=== PATIENT | female | born 1975 | race American Indian/Alaskan Native ===

== ENCOUNTER 2016-04-23 13:21 | Inpatient (IN) | payer MEDICAID ==
--- NOTE | 2016-04-23 14:40 | Emergency Department Report ---
Chief Complaint: High BP Stated Complaint: SHOOTING PAIN IN BACK/CHEST /ABD PAIN /HEAD PRESSU Time Seen by Provider: 04/23/16 14:26 - HPI History of Present Illness: 41-year-old female comes in for complaint of nausea and dizziness headache palpitations chest pressure just pain shooting through her chest to her upper back, pelvic pain mostly at night. Patient has a past medical history of hypertension she takes lisinopril 40 mg amlodipine pravastatin . - Exam Vital Signs: Vital Signs 04/23/16 13:29 Temperature 99.0 F Pulse Rate 79 Respiratory 22 Rate Blood Pressure 151/106 O2 Sat by Pulse 99 Oximetry Physical Exam: Is alert and oriented 3 no acute distress cardiovascular S1-S2 regular rate and rhythm respiratory clear to auscultation bilaterally abdomen soft nontender nondistended MSE screening note: Focused history and physical exam performed. Due to findings the following was ordered: CBC CMP urinalysis was ordered EKG ordered. Patient be evaluated in the main ER ED Disposition for MSE Condition: Stable
[2016-04-23 15:17] LABS: Basophils % (Auto) 1.2 % (0.0-1.8); Eosinophils % (Auto) 4.4 % (0.0-4.3); Hematocrit 42.3 % (30.3-42.9); Hemoglobin 13.7 gm/dl (10.1-14.3); Mean Corpuscular HGB Conc 32 % (30-34); Mean Corpuscular Volume 78 fl (79-97); Platelet Count 171 K/mm3 (140-440); Red Cell Distribution Width 16.5 % (13.2-15.2); White Blood Count 6.8 K/mm3 (4.5-11.0)
[2016-04-23 15:22] LABS: Mean Corpuscular Hemoglobin 25 pg (28-32)
[2016-04-23 15:35] LABS: BUN/Creatinine Ratio 12.85; Blood Urea Nitrogen 9 mg/dL (7-17); Calcium 8.9 mg/dL (8.4-10.2); Carbon Dioxide 22 mmol/L (22-30); Glucose 92 mg/dL (65-100); Potassium 4.4 mmol/L (3.6-5.0); Sodium 141 mmol/L (137-145)
[2016-04-23 15:37] LABS: Anion Gap 16 mmol/L
[2016-04-23] MEDS ORDERED: NITRO-BID 2% TP ONE (21:53)
[2016-04-23] MEDS ORDERED: MORPHINE IV ONE (21:53)
[2016-04-23] MEDS ORDERED: ZOFRAN IV ONE (21:53)
--- NOTE | 2016-04-23 22:04 | Emergency Department Report ---
HPI - General Chief Complaint: High BP Time Seen by Provider: 04/23/16 14:26 - HPI HPI: Room 1 Patient is a 41-year-old female presenting with a chief complaint of chest pain. Patient states for 1 week she has had intermittent substernal chest pain that is shooting in nature. Patient admits to shortness of breath with chest pain patient admits to nausea but denies vomiting. Patient also missed a diaphoresis with the chest pain. The patient currently gives her chest pain a score of 6/10. Patient also complains of a headache for over 1 week which ibuprofen does not help. The patient describes the headache as diffuse. Patient denies any preceding trauma. Patient states she believes she had an abnormal stress test in 2016 but has never had a cardiac catheterization Location: [see above] Duration: [see above] Quality: Pain, see above Severity: [see above] Modifying factors: [see above] Context: [see above] Mode of transportation: [not driving] ED Past Medical Hx - Past Medical History Hx Hypertension: Yes Hx Psychiatric Treatment: Yes (anxiety/depression) Additional medical history: hypercholesterolemia - Surgical History Hx Cholecystectomy: Yes Additional Surgical History: - Family History Family history: no significant - Social History Smoking Status: Current Every Day Smoker Substance Use Type: None (denies illicit drug use) - Medications Home Medications: Home Medications Medication Instructions Recorded Confirmed Last Taken Type Lisinopril [Zestril TAB] 40 mg PO QDAY 10/08/13 04/23/16 04/23/16 History 40 MG Pravastatin (Nf) [Pravachol] 40 mg PO QDAY 10/08/13 04/23/16 04/23/16 History 40 MG Amlodipine Besylate [Norvasc] 5 mg PO DAILY 03/04/15 04/23/16 04/23/16 History 5 MG Ibuprofen [Motrin] 800 mg PO Q8HR PRN #30 tablet 03/04/15 04/23/16 04/23/16 Rx 800 MG hydrOXYzine PAMOATE [Vistaril] 50 mg PO TID 04/23/16 04/23/16 04/23/16 History ED Review of Systems ROS: Stated complaint: SHOOTING PAIN IN BACK/CHEST /ABD PAIN /HEAD PRESSU Other details as noted in HPI Comment: All other systems reviewed and negative Constitutional: diaphoresis Eyes: denies: eye pain, eye discharge, vision change ENT: denies: ear pain, throat pain Respiratory: shortness of breath Cardiovascular: chest pain Endocrine: no symptoms reported Gastrointestinal: nausea. denies: vomiting Genitourinary: denies: urgency, dysuria, discharge Musculoskeletal: denies: back pain, joint swelling, arthralgia Skin: denies: rash, lesions Neurological: headache Psychiatric: denies: anxiety, depression Hematological/Lymphatic: denies: easy bleeding, easy bruising Physical Exam - Physical Exam Vital Signs: Vital Signs 04/23/16 04/23/16 04/23/16 13:29 18:45 18:56 Temperature 99.0 F 98.0 F Pulse Rate 79 70 Respiratory 22 18 16 Rate Blood Pressure 151/106 Blood Pressure 127/74 [Right] O2 Sat by Pulse 99 100 Oximetry Physical Exam: GENERAL: The patient is well-developed well-nourished female lying on stretcher not appearing to be in acute distress. [] HEENT: Normocephalic. Atraumatic. Extraocular motions are intact. Patient has moist mucous membranes. No Nystagmus noted NECK: Supple. Trachea midline CHEST/LUNGS: Clear to auscultation. There is no respiratory distress noted. HEART/CARDIOVASCULAR: Regular. There is no tachycardia. There is no gallop rub or murmur. ABDOMEN: Abdomen is soft, nontender. Patient has normal bowel sounds. There is no abdominal distention. SKIN: There is no rash. There is no edema. There is no diaphoresis. NEURO: The patient is awake, alert, and oriented. The patient is cooperative. The patient has no focal neurologic deficits. The patient has normal speech. 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 ED Course Vital Signs 04/23/16 04/23/16 04/23/16 13:29 18:45 18:56 Temperature 99.0 F 98.0 F Pulse Rate 79 70 Respiratory 22 18 16 Rate Blood Pressure 151/106 Blood Pressure 127/74 [Right] O2 Sat by Pulse 99 100 Oximetry ED Medical Decision Making - Lab Data Result diagrams: 04/23/16 14:50 04/23/16 14:50 Laboratory Tests 04/23/16 04/23/16 14:50 14:50 WBC 6.8 RBC 5.40 H Hgb 13.7 Hct 42.3 MCV 78 L MCH 25 L MCHC 32 RDW 16.5 H Plt Count 171 Lymph % (Auto) 32.8 [place] % (Auto) 8.1 H Eos % (Auto) 4.4 H Baso % (Auto) 1.2 Lymph # 2.2 [place] # 0.6 Eos # 0.3 Baso # 0.1 Seg Neutrophils % 53.5 Seg Neutrophils # 3.6 Sodium 141 Potassium 4.4 Chloride 107.0 Carbon Dioxide 22 Anion Gap 16 BUN 9 Creatinine 0.7 Estimated GFR > 60 BUN/Creatinine Ratio 12.85 Glucose 92 Calcium 8.9 - EKG Data -: EKG Interpreted by Me EKG shows normal: sinus rhythm Rate: normal - EKG Data When compared to previous EKG there are: changes noted Interpretation: nonspecific ST-T wave severino (new T-wave inversion in lead V2 when compared to previous EKG dated 12/21/2015) - Radiology Data Radiology results: report reviewed (CT head), image reviewed (CT head, chest x- ray) interpreted by me: Chest x-ray-no focal infiltrates, no pneumothorax CT head (read by radiologist)-no acute intracranial abnormalities - Differential Diagnosis ACS, pericarditis, anxiety, ICH, headache Critical care attestation.: If time is entered above; I have spent that time in minutes in the direct care of this critically ill patient, excluding procedure time. ED Disposition Clinical Impression: Chest pain, Headache Disposition: OP ADMITTED IP TO THIS HOSP Is pt being admited?: Yes Does the pt Need Aspirin: Yes Condition: Fair Instructions: Chest Pain (ED) Referrals: PRIMARY CARE, [Primary Care Provider] - 3-5 Days Time of Disposition: 23:17 (hospitalist paged)
[2016-04-23 22:21] LABS: Creatine Kinase MB 1.1 ng/mL (0.0-4.0)
[2016-04-23 22:22] LABS: Creatine Kinase 123 units/L (30-135)
--- NOTE | 2016-04-23 22:53 | Cat Scan Report ---
FINAL REPORT PROCEDURE: CT HEAD/BRAIN WO CON TECHNIQUE: Computerized tomography of the head was performed without contrast material. HISTORY: headache COMPARISON: No prior studies are available for comparison. FINDINGS: Skull and scalp: Normal. Paranasal sinuses: Mucous retention cyst left frontal sinus. Expanded lateral chambers of the sphenoid sinuses right greater than left. Expansive mastoid air cell sinuses.. Ventricles and subarachnoid spaces: Normal. Cerebrum: No evidence of hemorrhage, acute infarction or mass . Cerebellum and brainstem: No evidence of hemorrhage, acute infarction or mass. Vasculature: Normal. Comments: None. IMPRESSION: No acute intracranial pathology seen at this time
[2016-04-23] MEDS ORDERED: ASPIRIN PO ONE (23:18)
--- NOTE | 2016-04-24 00:25 | History and Physical Report ---
History of Present Illness Date of examination: 04/24/16 History of present illness: 41-year-old man with a history of hypertension, hyperlipidemia, anxiety, depression comes emergency room with complaints of chest pain located in the epigastric area. She describes it as a shooting pain, intermittent in nature lasting for less than 2 minutes, radiating to the back, intensity 4/10, she cannot identify exacerbating or relieving factors. No relief with nitroglycerin paste. Admits to nausea, shortness of breath, no palpitation or diaphoresis. She had a stress test last year which was negative Patient denies cough, abdominal pain, hematochezia, dysuria, frequency, focal weakness, dysarthria, fever chills, polydipsia polyuria, hot or cold intolerance , easy bruisability, or rash or bleeding from mucosal membrane, rhinorrhea, epistaxis, earache, tinnitus, blurry vision, eye discharge, anxiety, depression. Other review of systems negative PAST SURGICAL HISTORY: , cholecystectomy SOCIAL HISTORY: Denies alcohol, tobacco, drugs FAMILY HISTORY: Hypertension Medications and Allergies Allergies Allergy/AdvReac Type Severity Reaction Status Date / Time hydromorphone HCl Allergy Unknown Verified 04/23/16 21:52 [From Dilaudid] Home Medications Medication Instructions Recorded Confirmed Last Taken Type Lisinopril [Zestril TAB] 40 mg PO QDAY 10/08/13 04/23/16 04/23/16 History 40 MG Pravastatin (Nf) [Pravachol] 40 mg PO QDAY 10/08/13 04/23/16 04/23/16 History 40 MG Amlodipine Besylate [Norvasc] 5 mg PO DAILY 03/04/15 04/23/16 04/23/16 History 5 MG Ibuprofen [Motrin] 800 mg PO Q8HR PRN #30 tablet 03/04/15 04/23/16 04/23/16 Rx 800 MG hydrOXYzine PAMOATE [Vistaril] 50 mg PO TID 04/23/16 04/23/16 04/23/16 History Active Meds: Active Medications Amlodipine Besylate (Norvasc) 5 mg PO DAILY FRANCISCO Lisinopril (Zestril) 40 mg PO QDAY FRANCISCO Simvastatin (Zocor) 20 mg PO QHS FRANCISCO Exam - Physical Exam Narrative exam: Gen. appearance: Patient lying in bed, no apparent distress HEENT: Normocephalic, atraumatic, pupils equally round and reactive to light, extraocular movement intact, and no sclericterus,. No JVD or thyromegaly or nodule,neck supple, no carotid bruit ,mucous membranes moist, no exudate or erythema Heart: S1, S2, regular rate and rhythm Lungs: Clear to auscultation bilaterally, breathing comfortable Abdomen: Positive bowel sounds, nontender, nondistended, no organomegaly Extremity: No edema, cyanosis, clubbing Skin: No rash, nodules, warm, dry Neuro: Oriented 3, cranial nerves II-12 intact, speech is fluent, motor and sensory intact - Constitutional Vitals: Temp Pulse Resp BP Pulse Ox 98.0 F 50 L 19 139/88 100 04/23/16 18:56 04/23/16 23:00 04/23/16 23:00 04/23/16 23:00 04/23/16 18:45 Results - Labs CBC & Chem 7: 04/23/16 14:50 04/23/16 14:50 Labs: Abnormal lab results 04/23/16 Range/Units 14:50 RBC 5.40 H (3.65-5.03) M/mm3 MCV 78 L (79-97) fl MCH 25 L (28-32) pg RDW 16.5 H (13.2-15.2) % [place] % (Auto) 8.1 H (0.0-7.3) % Eos % (Auto) 4.4 H (0.0-4.3) % - Imaging and Cardiology EKG: image reviewed Chest x-ray: image reviewed CT Scan - head: report reviewed Assessment and Plan Hypertensive urgency Atypical Chest pain, rule out [place] Hyperlipidemia Depression Anxiety Admits medicine Check cardiac enzymes, lipid profile, consult cardiology Continue outpatient medications, start DVT prophylaxis Start Aspirin, IV morphine
--- NOTE | 2016-04-24 01:20 | Admit Criteria Form ---
Admission Criteria Documentation: CARDIOLOGY GRG Clinical Indications for Admission to Inpatient Care ( Place 'X' for any and all applicable criteria): Hospital admission is needed for appropriate care of the patient because of ANY ONE of the following (1): [ ] I. Hemodynamic instability as indicated by ALL of the following (1)(2)(3) (4)(5) [ ]a) Vital signs or other findings not as expected for chronic patient condition or baseline [ ]b) Instability indicated by ANY ONE of the following: [ ]i) Hypotension [ ]ii) Symptomatic Tachycardia unresponsive to treatment ( e.g., analgesia, fluids, sedation as indicated) [ ]iii) Inadequate perfusion indicated by ANY ONE of the following: [ ] 1) Lactic acidosis (> 2 mmol/L) [ ] 2) New abnormal capillary refill (> 3 seconds) [ ] 3) Reduced urine output [ ] 4) New altered mental status [ ]iv) Orthostatic vital sign changes unresponsive to treatment (e.g., fluids) [ ]v) IV inotropic or vasopressor medication required to maintain adequate blood pressure or perfusion [ ] II. Severe heart failure as indicated by ANY ONE of the following(17)(18) [ ]a) Respiratory distress [ ]b) Hypotension [ ]c) Anasarca (refractory to outpatient therapy) [ ]d) Cardiac arrhythmias of immediate concern [ ]e) Myocardial ischemia [ ] III. Cardiac arrhythmias or findings of immediate concern indicated by ANY ONE of the following (19)(20): [ ] a) Heart rhythms that are inherently dangerous or unstable indicated by ANY ONE of the following (21)(22)(23): [ ] i) Resuscitated ventricular fibrillation or cardiac arrest [ ] ii) Ventricular escape rhythm [ ] iii) Sustained ventricular tachycardia (30 seconds or more of ventricular rhythm at greater than 100 beats per minute) [ ] iv) Nonsustained ventricular tachycardia and ANY ONE of the following: [ ] 1) Suspected cardiac ischemia as cause or consequence of ventricular tachycardia [ ] 2) In setting of acute myocarditis [ ] b) Unstable cardiac conduction defects indicated by ANY ONE of the following(23)(24)(25) [ ] i) Type II second-degree atrioventricular block [ ]ii) Third-degree atrioventricular block [ ]iii) New-onset left bundle branch block with suspected myocardial ischemia [ ]c) Any heart rhythm and ANY ONE of the following (21)(22)(26)(27) (28) [ ] i) Continuous long-term ECG monitoring needed (e.g., initiation of drug requiring monitoring for more than 24 hours) [ ] ii) Patient has automatic implanted cardioverter defibrillator that is repeatedly firing, malfunctioning, or in need of immediate adjustment of settings beyond the scope of ambulatory or observation care [ ]d) Heart rhythms of concern due to ANY ONE of the following: [ ] i) Hypotension [ ] ii) Respiratory distress [ ] iii) Association with other significant symptoms (e.g., bradycardia with syncope or ongoing dizziness, supraventricular tachycardia with chest pain (14)(15)(17) [ ] IV. Monitoring for cardiac contusion beyond the scope of observation care needed [A](30)(31)(32) [ ] V. Surgical or device complication (e.g., valve replacement complication , pacemaker dysfunction) (35)(41)(44)(45)(46) [ ] . Inpatient palliative care needed. [B](49) Also use Inpatient Palliative Care Criteria [ ] VII. Nonbacterial thrombotic (marantic) endocarditis (36)(43)(47)(48) [ X] VIII. Cardiology condition, symptom, or finding for which emergency and observation care has failed or are not considered appropriate. [ ] IX. Acute valvular disease requiring inpatient as indicated by ANY ONE of the following (41) [ ]a) Acute valvular regurgitation (42) [ ]b) Noninfectious valvulitis (43) [ ]c) Obstructive valve thrombosis [ ]d) Paravalvular leak [ ]e) Other significant valvular disorder remaining after emergency or observation level of care (as appropriate) [ ]X. Pericardial disease requiring inpatient treatment as indicated by ANY ONE of the following (33)(34)(35)(36)(37) [ ]a) Suspected tamponade (38)(39)(40) [ ]b) Hemopericardium [ ]c) Other significant pericardial disorder remaining after emergency or observation level of care (as appropriate) [ ] XI. Cardiac ischemia beyond scope of emergency and observation care. [ ] XII. Hypertension requiring inpatient treatment as indicated by ANY ONE of the following (6)(7)(8) [ ]a) SBP greater than 220 mm Hg or DBP greater than 120 mmHg despite treatment [ ]b) SBP greater than 140 mm Hg or DBP greater than 100 mm Hg with evidence of acute end organ damage as indicated by ANY ONE of the following [ ] i) Altered mental status [ ] ii) Acute renal failure as indicated by new onset of ANY ONE of the following (9)(10)(11)(12)(13) [ ]1) 3-fold rise in serum creatinine from baseline [ ]2) Serum creatinine greater than 4 mg/dL ( 354 micromoles/L) with acute rise greater than 0.5 mg/dL (44.2 micromoles/L) [ ]3) Reduction of more than 75% in estimated glomerular filtration rate from baseline [ ]4) Estimated glomerular filtration rate less than 35 mL/min/1.73m2 (0.59 mL/sec/1.73m2) in child up to 18 years of age [ ]5) Cessation of urine output indicated by ALL of the following [ ]A. Adequate volume status [ ]B. Inadequate urine output as indicated by ANY ONE of the following [ ]a. Urine output less than 0.3 mL/kg/hr for 24 hours [ ]b. Anuria (urine output less than 0.1 mL/kg/hr) for 12 hours [ ] iii) Aortic dissection [ ] iv) Myocardial Ischemia [ ] v) Left ventricular heart failure [ ]vi) Retinal Hemorrhage [ ]vii) Other significant finding [ ]c) Hypertension in child requiring inpatient treatment as indicated by ALL of the following(14)(15)(16) [ ] i) Outpatient treatment not effective, not available, or not appropriate [ ]ii) SBP or DBP greater than 95th percentile for age [ ]iii) Evidence of acute end organ damage as indicated by ANY ONE of the following [ ]1) Altered mental status [ ]2) Acute renal failure as indicated by new onset of ANY ONE of the following(9)(10)(11)(12)(13) [ ]A. 3-fold rise in serum creatinine from baseline [ ]B. Serum creatinine greater than 4 mg/dL (354 micromoles/L) with acute rise greater than 0.5 mg/dL (44.2 micromoles/L) [ ]C. Reduction of more than 75% in estimated glomerular filtration rate from baseline [ ]D. Estimated glomerular filtration rate less than 35 mL/min/1.73m2 (0.59 mL/sec/1.73m2) in child up to 18 years of age [ ]E. Cessation of urine output indicated by ALL of the following [ ]a. Adequate volume status [ ]b. Inadequate urine output as indicated by ANY ONE of the following [ ]i) Urine output less than 0.3 mL/kg/hr for 24 hours [ ]ii) Anuria ( urine output less than 0.1 mL/kg/hr) for 12 hours [ ]3) Severe headache [ ]4) Visual disturbance [ ]5) Retinal hemorrhage [ ]6) Other significant finding [ ]XIII. Complications of transplanted heart indicated by ANY ONE of the following(61): [ ]a) Acute graft rejection requiring inpatient management (eg, intravenous immunosuppression)(62)(63) [ ]b) Acute graft heart failure indicated by ANY ONE of the following(64): [ ]i) Hemodynamic instability [ ]ii) Cardiac arrhythmias of immediate concern [ ]iii) Pulmonary edema that is very severe (eg, mechanical ventilation needed, imminent or likely, need for 100% oxygen to keep oxygen saturation above 90%) [ ]iv) Pulmonary edema that is persistent as indicated by ALL of the following: [ ]1) New need for oxygen therapy to keep oxygen saturation above 90% (or increased FiO2 need from baseline) [ ]2) Has not improved sufficiently with emergency department or observation care IV diuretics or other heart failure treatments[E] [ ]v) Altered mental status that is severe or persistent [ ]vi) Increased creatinine (new on laboratory test) with reduction of more than 50% in estimated glomerular filtration rate from baseline [ ]vii) Progressively (ongoing) rising creatinine (known from past laboratory test) with reduction of more than 25% in estimated glomerular filtration rate from baseline [ ]viii) Acute renal failure [ ]ix) Acute peripheral ischemia (eg, examination shows pulseless, cool, mottled, or cyanotic extremity) [ ]x) Pulmonary artery catheter monitoring needed [ ]xi) Other sign or symptom of heart failure requiring inpatient treatment (ie, too severe or not responsive to outpatient and observation care treatment) [ ]c) Infection requiring inpatient management (eg, Hemodynamic instability, need for intravenous antimicrobial treatment)(66)(67)(68)(69)(70) [ ]d) Cardiac allograft vasculopathy requiring inpatient management ( eg evidence of cardiac ischemia)(71) [ ]e) Other complication of transplanted heart (eg, stroke, severe pulmonary hypertension, severe valvular dysfunction) requiring inpatient management(72) The original [facility] content created by [employer] has been revised. The portions of the content which have been revised are identified through the use of italic text or in bold, and [facility] has neither reviewed nor approved the modified material. All other unmodified content is copyright [facility] [employer]. Please see references footnoted in the original [facility] [employer] edition 2016 Admission Criteria Met: Yes
[2016-04-24] MEDS ORDERED: DULCOLAX PR PRN (04:48)
[2016-04-24] MEDS ORDERED: TYLENOL PO PRN (04:48)
[2016-04-24] MEDS ORDERED: MORPHINE IV PRN (04:48)
[2016-04-24] MEDS ORDERED: ZOFRAN IV PRN (04:48)
[2016-04-24] MEDS ORDERED: SODIUM CHLORIDE FLUSH SYRINGE 10 ML IV PRN (04:48)
[2016-04-24] MEDS ORDERED: MILK OF MAGNESIA PO PRN (04:48)
[2016-04-24 06:04] LABS: Creatine Kinase MB 1.1 ng/mL (0.0-4.0)
--- NOTE | 2016-04-24 08:56 | XRay Report ---
PORTABLE CHEST: An AP portable view of the chest demonstrates a normal cardiac contour considering the limits of this technique. The lungs are clear with no evidence of infiltrate, fluid or failure. IMPRESSION: Normal portable chest.
[2016-04-24] MEDS ORDERED: NORVASC PO SCH (10:00)
[2016-04-24] MEDS ORDERED: LOVENOX SUB-Q SCH (10:00)
[2016-04-24] MEDS ORDERED: ZESTRIL PO SCH (10:00)
--- NOTE | 2016-04-24 10:00 | Consultation ---
Addendum entered and electronically signed by VERONIQUE VARGAS MD 11:57: Atypical chest pain Schedule for echo and lexiscan Original Note: History of Present Illness Consult date: 04/24/16 Consult reason: chest pain History of present illness: This is a 41yr old woman who presented to this hospital with complaints of chest pain. Patient reports chest pain, described as chest pressure, has been intermittent for 1 week. Associated shortness of breath. No acute ischemic changes on her presenting ECG. Cycled cardiac isoenymes are normal. Cardiology consultation requested for further recommendations. Patient reports a history of hypertension, anxiety, hyperlipidemia and tobacco abuse. 2 years ago she had normal myocardial perfusion persantine thallium and a normal LV systolic function, ejection fraction 70% by echocardiogram at [facility]. Medications and Allergies Allergies Allergy/AdvReac Type Severity Reaction Status Date / Time hydromorphone HCl Allergy Unknown Verified 04/23/16 21:52 [From Dilaudid] Home Medications Medication Instructions Recorded Confirmed Last Taken Type Lisinopril [Zestril TAB] 40 mg PO QDAY 10/08/13 04/23/16 04/23/16 History 40 MG Pravastatin (Nf) [Pravachol] 40 mg PO QDAY 10/08/13 04/23/16 04/23/16 History 40 MG Amlodipine Besylate [Norvasc] 5 mg PO DAILY 03/04/15 04/23/16 04/23/16 History 5 MG Ibuprofen [Motrin] 800 mg PO Q8HR PRN #30 tablet 03/04/15 04/23/16 04/23/16 Rx 800 MG hydrOXYzine PAMOATE [Vistaril] 50 mg PO TID 04/23/16 04/23/16 04/23/16 History Active Meds: Active Medications Acetaminophen (Tylenol) 650 mg PO Q4H PRN PRN Reason: Pain MILD(1-3)/Fever >100.5/MORE Amlodipine Besylate (Norvasc) 5 mg PO DAILY [facility] Aspirin (Baby Aspirin) 81 mg PO QDAY FRANCISCO Bisacodyl (Dulcolax) [address] QDAY PRN PRN Reason: Constipation unrelieved by MOM Enoxaparin Sodium (Lovenox) 40 mg SUB-Q QDAY FRANCISCO Lisinopril (Zestril) 40 mg PO QDAY FRANCISCO Magnesium Hydroxide (Milk Of Magnesia) 30 ml PO Q4H PRN PRN Reason: Constipation Morphine Sulfate (Morphine) 2 mg IV Q4H PRN PRN Reason: Pain, Moderate (4-6) Ondansetron HCl (Zofran) 4 mg IV Q8H PRN PRN Reason: N/V unrelieved by Reglan Simvastatin (Zocor) 20 mg PO QHS FRANCISCO Sodium Chloride (Sodium Chloride Flush Syringe 10 Ml) 10 ml IV PRN PRN PRN Reason: LINE FLUSH Physical Examination Vital Signs Temp Pulse Resp BP Pulse Ox 99.0 F 79 22 151/106 99 04/23/16 13:29 04/23/16 13:29 04/23/16 13:29 04/23/16 13:29 04/23/16 13:29 General appearance: no acute distress HEENT: Positive: PERRL Neck: Positive: trachea midline Cardiac: Positive: Reg Rate and Rhythm Lungs: Positive: Decreased Breath Sounds Neuro: Positive: Grossly Intact Results 04/23/16 14:50 04/23/16 14:50 Cardiac Enzymes 04/24/16 Range/Units 05:09 CK-MB (CK-2) 1.1 (0.0-4.0) ng/mL Lipids 04/24/16 Range/Units 05:09 Triglycerides 129 (2-149) mg/dL Cholesterol 200 H (50-199) mg/dL HDL Cholesterol 45 (40-59) mg/dL Cholesterol/HDL Ratio 4.44 % EKG interpretations - Telemetry EKG Rhythm: Sinus Rhythm Assessment and Plan Chest pain, atypical normal cycled Saray and benign ECG normal MPI 06/2014 normal LVEF by echo 06/2014 Hypertension Hyperlipidemia Tobacco abuse Recommend: Echocardiogram for LVEF assessment. Predischarge persantine thallium for further cardiac evaluation.
[2016-04-24] MEDS: ATIVAN IV ONE ×2 (10:52→17:53)
[2016-04-24 11:32] LABS: Creatine Kinase MB 1.2 ng/mL (0.0-4.0)
--- NOTE | 2016-04-24 11:52 | Progress Note ---
Assessment and Plan 1. Hypertensive urgency: Continue with antihypertensive meds. 2. Atypical chest pain: Cardiac enzymes were normal, continue with aspirin 325 mg daily, IV morphine. Cardiology following. 3. Hyperlipidemia: Continue with statin. 4. Depression: Commence Sertraline. 5. Anxiety disorder: Commence artivan prn . DVT prophylaxis: Continue with Lovenox 40 mg subcutaneous daily. Subjective Date of service: 04/24/16 Interval history: Chest pain improving. Objective - Constitutional Vitals: Vital Signs - 12hr 04/24/16 04/24/16 04/24/16 01:00 01:49 02:00 Temperature Pulse Rate 49 L 48 L 55 L Pulse Rate [ Left] Pulse Rate [ Right Radial] Respiratory 15 16 14 Rate Blood Pressure 145/90 145/90 130/84 Blood Pressure [Left Arm] Blood Pressure [Right Arm] O2 Sat by Pulse Oximetry 04/24/16 04/24/16 04/24/16 03:00 03:52 04:38 Temperature 98.2 F Pulse Rate 48 L 59 L Pulse Rate [ 50 L Left] Pulse Rate [ Right Radial] Respiratory 12 20 Rate Blood Pressure 127/78 Blood Pressure 126/75 [Left Arm] Blood Pressure [Right Arm] O2 Sat by Pulse 95 Oximetry 04/24/16 04/24/16 04/24/16 07:17 10:51 11:18 Temperature 98.0 F Pulse Rate Pulse Rate [ Left] Pulse Rate [ 53 L 51 L Right Radial] Respiratory 18 18 Rate Blood Pressure 139/74 Blood Pressure [Left Arm] Blood Pressure 120/76 144/89 [Right Arm] O2 Sat by Pulse 100 99 Oximetry General appearance: Present: no acute distress, well-nourished - EENT Eyes: PERRL, EOM intact ENT: hearing intact, clear oral mucosa Ears: bilateral: normal - Neck Neck: supple, normal ROM - Respiratory Respiratory effort: normal Respiratory: bilateral: CTA - Breasts Breasts: normal - Cardiovascular Rhythm: regular Heart Sounds: Present: S1 & S2. Absent: gallop, rub Extremities: pulses intact, No edema, normal color, Full ROM - Gastrointestinal General gastrointestinal: Present: soft, non-tender, non-distended, normal bowel sounds - Genitourinary Female genitourinary: normal - Integumentary Integumentary: clear, warm, dry - Musculoskeletal Musculoskeletal: 1, strength equal bilaterally - Neurologic Neurologic: moves all extremities - Psychiatric Psychiatric: memory intact, appropriate mood/affect, intact judgment & insight - Labs CBC & Chem 7: 04/23/16 14:50 04/23/16 14:50 Labs: Abnormal lab results 04/24/16 Range/Units 05:09 Cholesterol 200 H (50-199) mg/dL
[2016-04-24 15:58] VITALS: BP 134/94
--- NOTE | 2016-04-24 17:19 | Echocardiography Report ---
Transthoracic Echocardiogram Indication: CHEST PAIN, HTN BP: 144/89 HR: 54 Conclusions *The left ventricular chamber size is normal. *Global left ventricular systolic function is normal. *The estimated ejection fraction is 55-60%. Findings Procedure Info: The study quality is fair. The study is technically limited due to patient body habitus. Left Ventricle: The left ventricular chamber size is normal. Global left ventricular systolic function is normal. The estimated ejection fraction is 55-60%. Left Atrium: The left atrial chamber size is normal. Right Ventricle: The right ventricle is not well visualized. Right Atrium: The right atrium is not well visualized. The right atrial cavity size is normal. Aortic Valve: The aortic valve is trileaflet. There is no evidence of aortic regurgitation. There is no evidence of aortic stenosis. Mitral Valve: The mitral valve leaflets appear normal. There is mild mitral regurgitation. There is no evidence of mitral stenosis. Tricuspid Valve: The tricuspid valve is not well visualized. There is trace tricuspid regurgitation. No pulmonary hypertension is noted. There is no tricuspid stenosis. Pulmonic Valve: The pulmonic valve is not well visualized. There is mild pulmonic regurgitation. There is no pulmonic stenosis. Pericardium: There is no pericardial effusion. No pleural effusion is present. Aorta: There is no dilatation of the aortic root. Pulmonary Artery: The main pulmonary artery is not well visualized. Venous: The inferior vena cava appears normal in size. Measurements Chambers MM Name Value Normal Range IVSd (MM) 0.91 cm (0.6 - 1.1) LVPWd (MM) 1 cm (0.6 - 1.1) IVS:LVPW ratio 0.91 ratio - LVIDd (MM) 4.51 cm (3.7 - 5.6) LVIDs (MM) 2.3 cm (2 - 2.8) LV FS (Teichholz) (MM) 49 % - LV FS (cube) (MM) 49 % - EF Teichholz (MM) 80.5 % - Ao root diameter (MM) 2.4 cm (2 - 3.7) LA dimension (AP) MM 3.5 cm (1.9 - 4) LA:Ao ratio (MM) 1.46 ratio - AV cusp separation (MM) 2 cm (1.5 - 2.6) Chambers 2D Name Value Normal Range IVSd (2D) 0.9 cm (0.6 - 1.1) LVPWd 1 cm - LVPWd (2D) 0.97 cm (0.6 - 1.1) IVS:LVPW ratio (2D) 0.94 ratio - LVIDd 4.02 cm - LVIDs 2.3 cm - LVIDd (2D) 4.02 cm (3.7 - 5.6) LVIDs (2D) 2.31 cm (2 - 3.8) LV FS (Teichholz) (2D) 42.5 % - LV FS (cube) (2D) 42.5 % - LV EF (2D) 74 % - EF Teichholz (2D) 74.2 % - LA dimension 3.3 cm - Ao root diameter (2D) 3.1 cm (2 - 3.7) LA dimension (AP) 2D 3.3 cm (1.9 - 4) LA:Ao ratio (2D) 1.06 ratio - Volumes/Mass Name Value Normal Range LA ESV SP 4CH (MOD) 38 ml - LV EDV SP 4CH (MOD) 58 ml - LV ESV SP 4CH (MOD) 25 ml - EF SP 4CH (MOD) 57 % - Diastolic/Systolic Function Name Value Normal Range MV E-wave Vmax 0.74 m/sec - MV A-wave Vmax 0.46 m/sec - MV E:A ratio 1.6 ratio - LV septal e' Vmax 0.1 m/sec - LV lateral e' Vmax 0.16 m/sec - LV E:e' septal ratio 7.5 ratio - LV E:e' lateral ratio 4.5 ratio - Aortic Valve Name Value Normal Range AV Vmax 1.09 m/sec - AV VTI 26.4 cm - AV peak gradient 5 mmHg - AV mean gradient 3 mmHg - LVOT diameter 2 cm - LVOT Vmax 0.86 m/sec - LVOT peak gradient 3 mmHg - ALANNA (continuity Vmax) 2.49 cm2 - Tricuspid Valve Name Value Normal Range TR Vmax 1.74 m/sec - TR peak gradient 12 mmHg - Pulmonic Valve/Qp:Qs Name Value Normal Range PV Vmax 0.54 m/sec - PV peak gradient 1 mmHg - AZ end-diastolic Vmax 0.66 m/sec - PV acceleration time 134 msec -
[2016-04-24] MEDS ORDERED: ATIVAN IV PRN (18:59)
[2016-04-24] MEDS ORDERED: VISTARIL PO SCH (20:00)
[2016-04-24] MEDS ORDERED: ZOCOR PO SCH (22:00)
[2016-04-25] MEDS ORDERED: ZOLOFT PO SCH (10:00)
[2016-04-25] MEDS ORDERED: BABY ASPIRIN PO SCH (10:00)
== END 2016-04-24 19:56 | disposition left against medical advice (07) | DRG 305 ==
LOC: ED 13:21 → 4A 04-24 00:20
PROVIDERS: ADMIT Internal Medicine; ATTEND Family Medicine
DX: I16.0 Hypertensive urgency (principal); R07.89 Other chest pain; I10 Essential (primary) hypertension; E78.5 Hyperlipidemia, unspecified; F41.9 Anxiety disorder, unspecified; F32.9 Major depressive disorder, single episode, unspecified; E78.00 Pure hypercholesterolemia, unspecified; F17.200 Nicotine dependence, unspecified, uncomplicated; Z90.49 Acquired absence of other specified parts of digestive tract; Z82.49 Family history of ischemic heart disease and other diseases of the circulatory system; Z88.6 Allergy status to analgesic agent; Z79.899 Other long term (current) drug therapy
CPT/HCPCS: 36415; 70450; 71010; 80048; 80061; 82550; 82553; 82962; 84484; 85025; 93005; 93010; 93306; 96374; 96375; 99406; J1650; J2060; J2270; J2405; Q0177